=== PATIENT | female | born 1960 | race African-American/Black ===

== ENCOUNTER 2023-01-22 16:58 | Inpatient (IN) | payer MEDICAID, OTHER ==
[~2023-01-22] VITALS: Ht 162.6 cm; Wt 65.8 kg
[2023-01-22] MEDS ORDERED: NALOXONE HCL 1 MG/ML 2ML VIAL IV ONE (17:15)
[2023-01-22] MEDS ORDERED: HALOPERIDOL LACTATE 5MG/ML VIAL IM ONE (17:30)
[2023-01-22] MEDS ORDERED: LORAZEPAM 2MG/ML CPJ IM ONE (18:30)
[2023-01-22 18:39] LABS: BASOPHILS % 0.3 % (0.0-2.0); HEMATOCRIT. 37.4 % (36.0-48.0); HEMOGLOBIN. 12.6 g/dL (12.0-16.0); LYMPHOCYTES % 14.2 % (20.0-50.0); MEAN CORPUSCULAR HEMOGLOBIN 33.9 pg (28.0-32.0); MEAN CORPUSCULAR VOLUME 100.3 fL (81.0-99.0); MEAN PLATELET VOLUME 7.5 fl (7.4-10.4); MONOCYTES % 5.2 % (2.0-8.0); NEUTROPHILS % 80.3 % (40.0-76.0); PLATELET 248 x1000/uL (130-400); RED BLOOD CELL COUNT 3.72 mill/uL (4.2-5.4); RED CELL DISTRIBUTION WIDTH 13.1 % (11.6-14.6)
[2023-01-22 18:44] LABS: CHLORIDE 108 mEq/L (98-107)
[2023-01-22 18:47] LABS: ETHANOL BLOOD < 10 mg/dL
[2023-01-22] MEDS ORDERED: HYDRALAZINE 20MG/ML VIAL IV ONE (19:00)
[2023-01-22] MEDS ORDERED: IOHEXOL-350 100 ML BOTTLE ONE (22:48)
[2023-01-22] MEDS ORDERED: ASPIRIN 325MG EC TABLET PO ONE (23:30)
[2023-01-23] MEDS ORDERED: ASPIRIN 300MG SUPP PR ONE (00:30)
[2023-01-23 01:15] VITALS: BP 191/78
[2023-01-23 01:44] VITALS: BP 191/78
[2023-01-23] MEDS ORDERED: ONDANSETRON HCL 4MG/2ML INJ IV PRN (02:45)
[2023-01-23] MEDS ORDERED: HYDRALAZINE 20MG/ML VIAL IV PRN (02:45)
[2023-01-23] MEDS: SODIUM CHLORIDE 0.45% 1,000 ML IV SCH ×3 (03:12→22:31)
[2023-01-23] MEDS: HYDROCODONE/ACETAMINOPHEN 5/325MG TABLET PO PRN ×4 (06:42→22:27)
[2023-01-23] MEDS ORDERED: NALOXONE HCL 0.4MG/ML VIAL IV PRN (06:45)
[2023-01-23] MEDS ORDERED: CYCL5TAB PO (07:31)
[2023-01-23] MEDS ORDERED: PREG50CA63 PO (07:31)
[2023-01-23] MEDS ORDERED: METO10TA3 PO (07:31)
[2023-01-23] MEDS ORDERED: FAMO20TA8 PO (07:31)
[2023-01-23] MEDS ORDERED: [UNRECOGNIZED DRUG - CODE] PO (07:31)
[2023-01-23] MEDS ORDERED: ONDA4TAB11 PO (07:31)
[2023-01-23] MEDS ORDERED: ATOR40TA70 PO (07:31)
[2023-01-23] MEDS ORDERED: FOLI-43 PO (07:31)
[2023-01-23] MEDS ORDERED: OMEP20CA14 PO (07:31)
[2023-01-23] MEDS ORDERED: HYDR-4009 PO (07:31)
[2023-01-23] MEDS ORDERED: DOCU-150 PO (07:31)
[2023-01-23] MEDS ORDERED: NICO-681 TP (07:31)
[2023-01-23] MEDS ORDERED: NITR100C11 PO (07:31)
[2023-01-23] MEDS ORDERED: IBUP-2029 PO (07:31)
[2023-01-23] MEDS ORDERED: DICL25TA PO (07:31)
[2023-01-23 08:00] VITALS: BP 143/75
[2023-01-23] MEDS: PANTOPRAZOLE SODIUM 40 MG/VIAL IV SCH (09:25)
[2023-01-23 13:00] VITALS: BP 114/69
[2023-01-23] MEDS ORDERED: AMLODIPINE 10MG TABLET PO SCH (13:30)
[2023-01-23] MEDS: ENOXAPARIN 40MG/0.4ML SYR SUBCUT SCH (14:00)
[2023-01-23 15:56] LABS: CLARITY URINE CLOUDY (CLEAR); COLOR URINE YELLOW (YELLOW); KETONES URINE 1+ (NEGATIVE); LEUKOCYTE ESTERASE URINE TRACE (NEGATIVE); NITRITE URINE NEGATIVE (NEGATIVE); OCCULT BLOOD URINE 1+ (NEGATIVE); PROTEIN URINE 2+ (NEGATIVE); SPECIFIC GRAVITY URINE 1.036 (1.005-1.030)
[2023-01-23 16:00] VITALS: BP 162/60
[2023-01-23 16:05] LABS: *AMPHETAMINES SCREEN URINE NEGATIVE (NEGATIVE); *BARBITURATES SCREEN URINE NEGATIVE (NEGATIVE); *BENZODIAZEPINES SCREEN URINE NEGATIVE (NEGATIVE); *COCAINE SCREEN URINE PRESUMTIVE POSITIVE (NEGATIVE); CANNABINOID URINE SCREEN NEGATIVE (NEGATIVE); METHADONE URINE SCREEN NEGATIVE (NEGATIVE); OPIATES URINE SCREEN PRESUMTIVE POSITIVE (NEGATIVE); PHENCYCLIDINE URINE SCREEN NEGATIVE (NEGATIVE)
[2023-01-23] MEDS ORDERED: CLONIDINE 0.1MG TABLET PO PRN (18:30)
[2023-01-23] MEDS: AMLODIPINE 10MG TABLET PO SCH (18:54)
[2023-01-23 20:00] VITALS: BP 148/62
[2023-01-24] VITALS: BP 115/55
[2023-01-24] MEDS: HYDROCODONE/ACETAMINOPHEN 5/325MG TABLET PO PRN ×4 (04:13→23:11)
[2023-01-24 06:38] LABS: BASOPHILS % 0.6 % (0.0-2.0); EOSINOPHILS % 0.1 % (0.0-5.0); HEMATOCRIT. 37.7 % (36.0-48.0); HEMOGLOBIN. 12.9 g/dL (12.0-16.0); LYMPHOCYTES % 27.3 % (20.0-50.0); MEAN CORPUSCULAR HEMOGLOBIN 34.8 pg (28.0-32.0); MEAN CORPUSCULAR VOLUME 101.6 fL (81.0-99.0); MEAN PLATELET VOLUME 8.3 fl (7.4-10.4); MONOCYTES % 7.6 % (2.0-8.0); NEUTROPHILS % 64.4 % (40.0-76.0); PLATELET 254 x1000/uL (130-400); RED BLOOD CELL COUNT 3.71 mill/uL (4.2-5.4); RED CELL DISTRIBUTION WIDTH 13.2 % (11.6-14.6)
[2023-01-24 08:00] VITALS: BP 148/55
[2023-01-24] MEDS: SODIUM CHLORIDE 0.45% 1,000 ML IV SCH (08:45)
[2023-01-24] MEDS: AMLODIPINE 10MG TABLET PO SCH (09:26)
[2023-01-24] MEDS: PANTOPRAZOLE SODIUM 40 MG/VIAL IV SCH (09:27)
[2023-01-24] MEDS: ASPIRIN 81MG TABLET PO SCH (09:27)
[2023-01-24 12:00] VITALS: BP 142/58
[2023-01-24] MEDS ORDERED: HALOPERIDOL LACTATE 5MG/ML VIAL IM NR (13:00)
[2023-01-24] MEDS: ENOXAPARIN 40MG/0.4ML SYR SUBCUT SCH (13:43)
[2023-01-24 16:00] VITALS: BP 145/68
[2023-01-24] MEDS: QUETIAPINE FUMARATE 25MG TABLET PO SCH ×2 (20:58→21:00)
[2023-01-25] VITALS (7 sets, daily range): BP systolic 94–120; BP diastolic 40–71
[2023-01-25] MEDS: LORAZEPAM 1MG TABLET PO PRN ×2 (00:25→21:57)
[2023-01-25] MEDS: SODIUM CHLORIDE 0.45% 1,000 ML IV SCH ×2 (04:09→14:45)
[2023-01-25] MEDS: HYDROCODONE/ACETAMINOPHEN 5/325MG TABLET PO PRN ×4 (05:27→21:16)
[2023-01-25] MEDS: ENOXAPARIN 30MG/0.3ML SYR SUBCUT SCH (09:00)
[2023-01-25] MEDS: QUETIAPINE FUMARATE 25MG TABLET PO SCH ×2 (09:00→21:00)
[2023-01-25] MEDS: ASPIRIN 81MG TABLET PO SCH (09:00)
[2023-01-25] MEDS: FAMOTIDINE 20MG/2ML VIAL IV SCH (09:00)
[2023-01-25] MEDS: AMLODIPINE 10MG TABLET PO SCH (09:00)
[2023-01-25] MEDS ORDERED: LEVO-65 MT (12:04)
[2023-01-25] MEDS ORDERED: ATOR20TA MT (12:05)
[2023-01-25] MEDS ORDERED: AMLO10TA80 MT (12:05)
[2023-01-26] VITALS: BP 113/82
[2023-01-26] MEDS: SODIUM CHLORIDE 0.45% 1,000 ML IV SCH ×2 (00:45→20:45)
[2023-01-26] MEDS: HYDROCODONE/ACETAMINOPHEN 5/325MG TABLET PO PRN ×3 (05:47→22:10)
[2023-01-26 08:00] VITALS: BP 168/58
[2023-01-26] MEDS: ENOXAPARIN 30MG/0.3ML SYR SUBCUT SCH ×2 (09:00→09:35)
[2023-01-26] MEDS: FAMOTIDINE 20MG/2ML VIAL IV SCH (09:33)
[2023-01-26] MEDS: AMLODIPINE 10MG TABLET PO SCH (09:34)
[2023-01-26] MEDS: ASPIRIN 81MG TABLET PO SCH (09:34)
[2023-01-26] MEDS: QUETIAPINE FUMARATE 25MG TABLET PO SCH ×3 (09:34→22:01)
[2023-01-26] MEDS ORDERED: LEVOFLOXACIN 500MG TABLET PO SCH (11:00)
[2023-01-26 12:00] VITALS: BP 140/78
[2023-01-26 16:00] VITALS: BP 158/75
[2023-01-26] MEDS: LORAZEPAM 2MG/ML CPJ IV PRN ×2 (19:03→23:33)
[2023-01-26 20:00] VITALS: BP 107/46
[2023-01-27] MEDS: HYDROCODONE/ACETAMINOPHEN 5/325MG TABLET PO PRN ×2 (03:31→09:14)
[2023-01-27 04:00] VITALS: BP 140/61
[2023-01-27] MEDS: SODIUM CHLORIDE 0.45% 1,000 ML IV SCH (06:45)
[2023-01-27 08:00] VITALS: BP 101/62
[2023-01-27] MEDS: AMLODIPINE 10MG TABLET PO SCH (09:00)
[2023-01-27] MEDS: QUETIAPINE FUMARATE 25MG TABLET PO SCH ×2 (09:00→09:14)
[2023-01-27] MEDS: ENOXAPARIN 30MG/0.3ML SYR SUBCUT SCH (09:00)
[2023-01-27] MEDS: ASPIRIN 81MG TABLET PO SCH (09:13)
[2023-01-27 09:14] VITALS: BP 101/62
[2023-01-27] MEDS: FAMOTIDINE 20MG/2ML VIAL IV SCH (09:14)
[2023-01-27] MEDS ORDERED: LEVOFLOXACIN 250MG TABLET PO SCH (11:00)
== END 2023-01-27 10:46 | disposition home or self-care (01) | DRG 52 ==
LOC: ER 16:58 → EDBD 16:58 → MICUSO 20:13 → EDBEDREQTM 20:33 → EDBEDREQSVC 20:33 → EDBEDREQ 20:33 → 7EST 01-23 01:54
PROVIDERS: ADMIT Internal Medicine; ATTEND Internal Medicine
DX: G92.8 Other toxic encephalopathy (principal); N17.0 Acute kidney failure with tubular necrosis; I16.0 Hypertensive urgency; F14.90 Cocaine use, unspecified, uncomplicated; I10 Essential (primary) hypertension; F17.210 Nicotine dependence, cigarettes, uncomplicated
CPT/HCPCS: 36415; 70496; 70498; 71045; 80048; 80053; 80061; 80305; 80320; 81003; 84484; 85025; 87186; 92610; 93005; 97116; 97162; 97166; 99291; C1893; C9113; J0360; J1630; J1650; J2060; J2405; J3490; Q9967; G0480

== ENCOUNTER 2023-02-14 16:54 | Emergency (ER) | payer MEDICAID, OTHER ==
[~2023-02-14] VITALS: Ht 165.1 cm; Wt 68.0 kg
[~2023-02-14 16:54] MED LIST: AMLO10TA80 MT; ATOR20TA MT; ATOR40TA70 PO; CYCL5TAB PO; DICL25TA PO; DOCU-150 PO; FAMO20TA8 PO; FOLI-43 PO; HYDR-4009 PO; IBUP-2029 PO; LEVO-65 MT; METO10TA3 PO; NICO-681 TP; OMEP20CA14 PO; ONDA4TAB11 PO; PREG50CA63 PO; [UNRECOGNIZED DRUG - CODE] PO
[2023-02-14 17:59] LABS: BASOPHILS % 0.3 % (0.0-2.0); EOSINOPHILS % 0.3 % (0.0-5.0); HEMATOCRIT. 35.6 % (36.0-48.0); HEMOGLOBIN. 11.9 g/dL (12.0-16.0); LYMPHOCYTES % 33.7 % (20.0-50.0); MEAN CORPUSCULAR VOLUME 101.6 fL (81.0-99.0); MEAN PLATELET VOLUME 7.5 fl (7.4-10.4); MONOCYTES % 5.4 % (2.0-8.0); NEUTROPHILS % 60.3 % (40.0-76.0); PLATELET 252 x1000/uL (130-400); RED BLOOD CELL COUNT 3.51 mill/uL (4.2-5.4); RED CELL DISTRIBUTION WIDTH 12.9 % (11.6-14.6)
[2023-02-14] MEDS ORDERED: ACETAMINOPHEN 325MG TABLET PO ONE (18:00)
[2023-02-14] MEDS ORDERED: IBUPROFEN 400MG TABLET PO ONE (18:00)
[2023-02-14 18:05] VITALS: BP 136/63
[2023-02-14 18:11] LABS: CHLORIDE 101 mEq/L (98-107)
[2023-02-14 18:24] LABS: CREATINE KINASE 707 IU/L (26-192); ETHANOL BLOOD < 10 mg/dL
[2023-02-14] MEDS ORDERED: SODIUM CHLORIDE 0.9% 1,000 ML IV ONE ×2 (19:00→19:45)
[2023-02-14] MEDS ORDERED: PANTOPRAZOLE SODIUM 40 MG/VIAL IV ONE (21:15)
[2023-02-14 21:58] LABS: CLARITY URINE CLEAR (CLEAR); COLOR URINE YELLOW (YELLOW); KETONES URINE TRACE (NEGATIVE); LEUKOCYTE ESTERASE URINE NEGATIVE (NEGATIVE); NITRITE URINE NEGATIVE (NEGATIVE); OCCULT BLOOD URINE NEGATIVE (NEGATIVE); PH URINE 5.5 (4.5-8.0); PROTEIN URINE NEGATIVE (NEGATIVE); UROBILINOGEN URINE 0.2 E.U./dL (0.2-1.0)
[2023-02-14 22:07] LABS: *AMPHETAMINES SCREEN URINE NEGATIVE (NEGATIVE); *BARBITURATES SCREEN URINE NEGATIVE (NEGATIVE); *BENZODIAZEPINES SCREEN URINE NEGATIVE (NEGATIVE); *COCAINE SCREEN URINE PRESUMTIVE POSITIVE (NEGATIVE); CANNABINOID URINE SCREEN NEGATIVE (NEGATIVE); METHADONE URINE SCREEN NEGATIVE (NEGATIVE); OPIATES URINE SCREEN PRESUMTIVE POSITIVE (NEGATIVE); PHENCYCLIDINE URINE SCREEN NEGATIVE (NEGATIVE)
[2023-02-14 22:41] LABS: HEMATOCRIT 32.9 % (36.0-48.0); MEAN CORPUSCULAR HEMOGLOBIN 34.1 pg (28.0-32.0); MEAN CORPUSCULAR VOLUME 101.9 fL (81.0-99.0); PLATELET 233 x1000/uL (130-400); RED BLOOD CELL COUNT 3.23 mill/uL (4.2-5.4); RED CELL DISTRIBUTION WIDTH 13.3 % (11.6-14.6)
[2023-02-14] MEDS ORDERED: MORPHINE SULFATE 2 MG/ML CPJ (NOT FOR IM USE) IV ONE (23:00)
[2023-02-14] MEDS ORDERED: MORPHINE SULFATE 4 MG/ML CPJ (NOT FOR IM USE) IV ONE (23:00)
[2023-02-14] MEDS ORDERED: KETOROLAC 30MG/ML VIAL IV ONE (23:00)
[2023-02-14] MEDS ORDERED: METF-873 MT (23:10)
[2023-02-14] MEDS ORDERED: IBUP-2028 MT (23:10)
[2023-02-14] MEDS ORDERED: HYDR-4001 MT (23:10)
== END 2023-02-15 00:04 | disposition home or self-care (01) ==
LOC: ER 16:54
DX: E86.0 Dehydration (principal); E11.65 Type 2 diabetes mellitus with hyperglycemia; R41.82 Altered mental status, unspecified; I10 Essential (primary) hypertension; Z59.00 Homelessness unspecified; Z79.84 Long term (current) use of oral hypoglycemic drugs
CPT/HCPCS: 36415; 71045; 80053; 80305; 80307; 80320; 80329; 81003; 82140; 82270; 82550; 83690; 83880; 84484; 85025; 85027; 93005; 96361; 96374; 96375; 99285; C9113; J2270; J7030; Z7610; G0480

== ENCOUNTER 2023-02-15 10:49 | Emergency (ER) | payer OTHER ==
[~2023-02-15 10:49] MED LIST changes: +HYDR-4001 MT; +IBUP-2028 MT; +METF-873 MT
[2023-02-15 11:11] VITALS: BP 141/67
== END 2023-02-15 11:11 | disposition home or self-care (01) ==
LOC: ER 10:49
DX: Z76.0 Encounter for issue of repeat prescription (principal); Z13.9 Encounter for screening, unspecified
CPT/HCPCS: 99281

== ENCOUNTER 2023-02-19 12:28 | Emergency (ER) | payer MEDICAID, OTHER ==
[~2023-02-19] VITALS: Ht 162.6 cm; Wt 69.0 kg
[2023-02-19] MEDS ORDERED: SODIUM CHLORIDE 0.9% 1,000 ML IV ONE (12:45)
[2023-02-19 14:40] LABS: CHLORIDE 103 mEq/L (98-107)
[2023-02-19 14:49] LABS: ETHANOL BLOOD < 10 mg/dL
[2023-02-19 14:57] LABS: BASOPHILS % 0.4 % (0.0-2.0); EOSINOPHILS % 0.3 % (0.0-5.0); HEMATOCRIT. 38.7 % (36.0-48.0); HEMOGLOBIN. 13.1 g/dL (12.0-16.0); LYMPHOCYTES % 35.1 % (20.0-50.0); MEAN CORPUSCULAR HEMOGLOBIN 34.5 pg (28.0-32.0); MEAN CORPUSCULAR VOLUME 101.7 fL (81.0-99.0); MEAN PLATELET VOLUME 8.5 fl (7.4-10.4); MONOCYTES % 3.8 % (2.0-8.0); NEUTROPHILS % 60.4 % (40.0-76.0); PLATELET 309 x1000/uL (130-400); RED BLOOD CELL COUNT 3.81 mill/uL (4.2-5.4); RED CELL DISTRIBUTION WIDTH 12.9 % (11.6-14.6)
[2023-02-19 15:32] LABS: CLARITY URINE CLEAR (CLEAR); COLOR URINE YELLOW (YELLOW); KETONES URINE TRACE (NEGATIVE); LEUKOCYTE ESTERASE URINE NEGATIVE (NEGATIVE); NITRITE URINE NEGATIVE (NEGATIVE); OCCULT BLOOD URINE NEGATIVE (NEGATIVE); PH URINE 6.5 (4.5-8.0); PROTEIN URINE TRACE (NEGATIVE); SPECIFIC GRAVITY URINE 1.014 (1.005-1.030); UROBILINOGEN URINE 0.2 E.U./dL (0.2-1.0)
[2023-02-19 15:43] LABS: *AMPHETAMINES SCREEN URINE NEGATIVE (NEGATIVE); *BARBITURATES SCREEN URINE NEGATIVE (NEGATIVE); *BENZODIAZEPINES SCREEN URINE NEGATIVE (NEGATIVE); *COCAINE SCREEN URINE PRESUMTIVE POSITIVE (NEGATIVE); CANNABINOID URINE SCREEN NEGATIVE (NEGATIVE); METHADONE URINE SCREEN NEGATIVE (NEGATIVE); OPIATES URINE SCREEN NEGATIVE (NEGATIVE); PHENCYCLIDINE URINE SCREEN NEGATIVE (NEGATIVE)
[2023-02-19 16:45] VITALS: BP 168/95
[2023-02-19] MEDS ORDERED: OXYCODONE HCL/ACETAMINOPHEN 5/325MG TABLET PO ONE (19:30)
== END 2023-02-20 02:36 | disposition home or self-care (01) ==
LOC: ER 12:34
DX: R41.82 Altered mental status, unspecified (principal); F14.10 Cocaine abuse, uncomplicated
CPT/HCPCS: 36415; 70450; 71045; 80053; 80305; 80307; 80320; 80329; 81003; 83605; 83690; 84484; 85025; 87040; 93005; 96360; 96361; 99285; J7030; Z7610; G0480